=== PATIENT | female | born 1950 | race Caucasian/White ===

== ENCOUNTER → 2023-04-19 12:50 | Outpatient (CLI) | payer MEDICARE, SELFPAY ==
--- NOTE | 2023-04-19 13:19 | ECG_ITS ---
APPROVED REPORT Exam: Resting ECG HR:68 bpm ECG Measurements Heart Rate 68 AXES FL 175 P 2 QRSd 112 QRS -55 QT 390 T 5 QTc 408 Conclusion SINUS RHYTHM LEFT ANTERIOR FASCICULAR BLOCK [QRS AXIS <= -45, QR IN I, RS IN II] VOLTAGE CRITERIA FOR LVH [MEETS CRITERIA IN ONE OF: R(aVL), S(V1), R(V5), R(V5/V6)+S(V1)] POSSIBLE ANTEROSEPTAL MYOCARDIAL INFARCTION , OF INDETERMINATE AGE [30 ms Q WAVE IN V1-V4] ABNORMAL ECG UNCONFIRMED REPORT Electronically signed by : Bridger Ny MD 04/19/2023 17:32:30
--- NOTE | 2023-04-19 13:36 | XR_ITS ---
FINAL REPORT CLINICAL HISTORY: upcoming sx to remove cyst on right foot, non-smoker COMPARISON: None FINDINGS: LEFT FOOT Three views of the left foot demonstrate no acute fracture or dislocation. There are moderate hypertrophic changes at the 1st metatarsophalangeal joint as well as the first metatarsal tarsal articulation. There is a large plantar spur noted on the calcaneus. 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 The soft tissues are unremarkable. IMPRESSION: No acute bony abnormality. Moderate to severe degenerative changes as described above. Reviewed, Interpreted and Dictated by Ed Caputo MD Transcribed by Estella Davenport Authenticated and [facility]
--- NOTE | 2023-04-19 13:36 | XR_ITS ---
FINAL REPORT CLINICAL HISTORY: upcoming sx to remove cyst on right foot, non-smoker COMPARISON: None FINDINGS: RIGHT FOOT 3 views of the right foot were obtained. There is no acute fracture or dislocation. 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 IMPRESSION: No acute bony abnormality. 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 Reviewed, Interpreted and Dictated by Ed Caputo MD Transcribed by Estella Davenport Authenticated and [facility]
--- NOTE | 2023-04-19 13:36 | XR_ITS ---
FINAL REPORT TECHNIQUE: Chest PA & Lateral CLINICAL HISTORY: upcoming sx to remove cyst on right foot, non-smoker COMPARISON: None FINDINGS: 2 views of the chest were performed. The heart size is normal. The mediastinum is within normal limits. There is no acute cardiopulmonary process. There are no pleural effusions. There is no pneumothorax. The bony thorax appears intact. There is a spinal stimulator present in the posterior aspect of the mid thoracic canal. IMPRESSION: No acute cardiopulmonary process. Reviewed, Interpreted and Dictated by Ed Caputo MD Transcribed by Estella Davenport Authenticated and [facility]
== END ==
PROVIDERS: PCP Internal Medicine; Visit Provider Podiatrist
DX: R60.9 Edema, unspecified; M79.671 Pain in right foot; M79.672 Pain in left foot; Z01.818 Encounter for other preprocedural examination
CPT/HCPCS: 71046; 73630; 93005